=== PATIENT | male | born 1975 | race Caucasian/White ===

== ENCOUNTER 2017-12-27 20:56 | Emergency (ER) | payer MEDICAID ==
[~2017-12-27] VITALS: Ht 177.8 cm; Wt 63.6 kg
[2017-12-27] MEDS ORDERED: ketorolac trometh. 30mg/ml inj. IV ONE (21:40)
[2017-12-27 21:45] LABS: CLARITY,URINE CLEAR (Clear); COLOR,URINE YELLOW (Yellow); GLUCOSE, URINE NEGATIVE (Neg); KETONES,URINE NEGATIVE (Neg); LEUKOCYTE ESTERASE ,URINE NEGATIVE (Neg); NITRITES, URINE NEGATIVE (Neg); OCCULT BLOOD,URINE LARGE (Neg); PH,URINE 6.5 (4.8-8.0); PROTEIN,URINE TRACE mg/dl (Neg)
[2017-12-27] MEDS ORDERED: normal saline 1000ML IV soln IVB ONE (21:50)
[2017-12-27] MEDS ORDERED: ondansetron/PF 4mg/2ml inj IV ONE (21:50)
[2017-12-27] MEDS ORDERED: morphine 4 MG/ML inj SYRINge IV ONE (21:50)
[2017-12-27 21:59] LABS: BACTERIA,URINE FEW /HPF (Neg); MUCUS STRANDS MODERATE /LPF (Neg); RBC,URINE TNTC /HPF (0-2); SQUAMOUS EPITHELIAL CELL,UR FEW /LPF (FEW); UA COLLECTION TYPE CLN CATCH MIDSTREAM; WBC,URINE 0-4 /HPF (0-4)
[2017-12-27] MEDS ORDERED: NO HOME MEDS (22:36)
[2017-12-27 22:42] LABS: BASOPHILS # (AUTO) 0.1 X10'3 (0-0.2); BASOPHILS % (AUTO) 0.8 % (0-1); EOSINOPHILS # (AUTO) 0.1 X10'3 (0-0.9); EOSINOPHILS % (AUTO) 0.8 % (0-6); HEMATOCRIT 39.7 % (42.0-52.0); HEMOGLOBIN 13.7 g/dl (14.0-17.9); LYMPHOCYTES % (AUTO) 8.7 % (21-51); MEAN CORPUSCULAR HEMOGLOBIN 32.1 PG (27.0-31.0); MEAN CORPUSCULAR HGB CONC 34.5 % (33.0-36.5); MEAN CORPUSCULAR VOLUME 93.2 FL (78-98); MEAN PLATELET VOLUME 6.4 FL (7.4-10.4); MONOCYTES # (AUTO) 0.5 X10'3 (0-0.9); MONOCYTES % (AUTO) 4.1 % (2-12); NEUTROPHILS # (AUTO) 9.6 X10'3 (1.8-7.7); NEUTROPHILS % (AUTO) 85.6 % (42-75); PLATELET COUNT 255 X10'3 (140-440); RED BLOOD COUNT 4.26 X10'6 (4.70-6.10); RED CELL DISTRIBUTION WIDTH 13.1 % (11.5-14.5); WHITE BLOOD COUNT 11.2 X10'3 (4.5-11.0)
[2017-12-27 22:57] LABS: ALANINE AMINOTRANSFERASE 14 U/L (12-78); ALBUMIN 3.5 G/DL (3.4-5.0); ALBUMIN/GLOBULIN RATIO 1.3 (1.1-1.5); ALKALINE PHOSPHATASE 72 IU/L (46-116); ANION GAP 6 (8-16); ASPARTATE AMINO TRANSFERASE 14 U/L (10-37); BILIRUBIN,TOTAL 0.3 MG/DL (0.1-1.0); BLOOD UREA NITROGEN 10 MG/DL (7-18); CHLORIDE 106 MMOL/L (99-107); CREATININE 0.91 MG/DL (0.60-1.10); GLUCOSE 108 MG/DL (70-104); LIPASE 137 U/L (73-393); POTASSIUM 4.4 MMOL/L (3.5-5.1); SODIUM 140 MMOL/L (135-145); TOTAL CARBON DIOXIDE 28.4 MMOL/L (24-32); TOTAL PROTEIN 6.1 G/DL (6.4-8.2); eGFR > 90 ML/MIN
[2017-12-27] MEDS ORDERED: IBUP-1986 PO (23:26)
[2017-12-27] MEDS ORDERED: TRAM50TA2 PO (23:26)
[2017-12-27 23:34] VITALS: BP 104/59
== END 2017-12-27 23:35 | disposition home or self-care (01) ==
LOC: ER 20:57
DX: N23 Unspecified renal colic (principal); N20.1 Calculus of ureter; Z87.442 Personal history of urinary calculi; Z88.0 Allergy status to penicillin; Z88.1 Allergy status to other antibiotic agents; Z79.899 Other long term (current) drug therapy; Z98.890 Other specified postprocedural states
CPT/HCPCS: 36415; 74176; 80053; 81001; 83690; 84484; 85025; 93005; 96374; 96375; 99285; J1885; J2270; J2405; J7030

== ENCOUNTER 2019-01-21 08:32 | Emergency (ER) | payer MEDICAID, MEDICARE ==
[~2019-01-21] VITALS: Ht 177.8 cm; Wt 70.0 kg
[~2019-01-21 08:32] MED LIST: IBUP-1986 PO; NO HOME MEDS
[2019-01-21] MEDS ORDERED: IBUP-1985 PO (09:39)
[2019-01-21] MEDS ORDERED: ACET-2615 PO (09:39)
[2019-01-21] MEDS ORDERED: acetaminophen 325mg tablet PO ONE (09:40)
[2019-01-21] MEDS ORDERED: ketorolac trometh inj. 60 MG/2 ML VIAL IM ONE (09:40)
[2019-01-21 10:01] VITALS: BP 111/75
== END 2019-01-21 10:14 | disposition home or self-care (01) ==
LOC: ER 08:32
DX: M54.2 Cervicalgia (principal); Z87.442 Personal history of urinary calculi; Z98.890 Other specified postprocedural states; Z88.0 Allergy status to penicillin; Z88.1 Allergy status to other antibiotic agents; Z79.899 Other long term (current) drug therapy
CPT/HCPCS: 96372; 99283; J1885

== ENCOUNTER 2023-08-16 19:35 | Emergency (ER) | payer MEDICAID, MEDICARE ==
[~2023-08-16] VITALS: Ht 177.8 cm; Wt 68.2 kg
[~2023-08-16 19:35] MED LIST changes: +IBUP-1985 PO
[2023-08-16 19:42] VITALS: BP 117/82; PULSE 92; RESP 18; TEMP 99; O2SAT 97
== END 2023-08-16 21:19 | disposition home or self-care (01) ==
LOC: ER 19:35
DX: S60.211A Contusion of right wrist, initial encounter (principal); Z88.1 Allergy status to other antibiotic agents; Z88.0 Allergy status to penicillin; X58.XXXA Exposure to other specified factors, initial encounter; Y93.89 Activity, other specified; Y92.89 Other specified places as the place of occurrence of the external cause; Y99.8 Other external cause status
CPT/HCPCS: 29125; 73090; 99283